=== PATIENT | female | born 1995 | race Asian ===

== ENCOUNTER 2025-03-20 06:00 | Day surgery (SDC) | payer BC ==
[~2025-03-20] VITALS: Ht 152.4 cm; Wt 86.1 kg
[2025-03-20] VITALS (13 sets, daily range): BP systolic 97–148; BP diastolic 66–83
[~2025-03-20 06:00] MED LIST: ALBU90OI INH; AZIT250 PO; HYDACE5 PO; HYDPAM25 PO; NAPR550 PO; Prozac40 MG PO; RXHYDACE PO; RXNAPNA550 PO; Vitamin D1000 UNI1 PO; ZYRTEC10 M2 PO
[2025-03-20] MEDS ORDERED: CeFAZolin Sodium 2,000 MG in NS 100 ML IV SCH ×2 (06:15→13:45)
--- NOTE | 2025-03-20 06:48 | NUR ---
Ambulatory in Day Surgery History, Chart, Medications and Allergies reviewed before start of procedure. Pre-Op teaching done. Pt verbalizes understanding. Patient States Post-Procedure ride home has been arranged.
[2025-03-20] MEDS ORDERED: Midazolam HCl 1MG / ML 2ML Vial ONE (07:06)
[2025-03-20] MEDS ORDERED: FentaNYL Citrate 50 MCG/ML 2 ML Injection ONE (07:06)
[2025-03-20] MEDS ORDERED: Bupivacaine 0.5% W/EPI 1:200000 SDV 30 ML Vial ONE (07:06)
[2025-03-20] MEDS ORDERED: Rocuronium Bromide 10 MG/ML 5ML Injection IV ONE ×3 (07:08→09:25)
[2025-03-20] MEDS ORDERED: HYDROmorphone HCl/Pf 1MG SYR IV PRN ×3 (09:25→10:10)
[2025-03-20] MEDS ORDERED: Ondansetron HCl 2 MG / ML 2ML Vial ONE (09:25)
[2025-03-20] MEDS ORDERED: Dexamethasone Sod Phos 10 MG/ML 1ML VIAL ONE (09:25)
[2025-03-20] MEDS ORDERED: Ketorolac Tromethamine 30mg Vial ONE (09:25)
[2025-03-20] MEDS ORDERED: FentaNYL Citrate 50 MCG/ML 2 ML Injection IV PRN ×2 (09:25→09:30)
[2025-03-20] MEDS ORDERED: Sugammadex Sodium 200 MG/2ML SDV (100 MG/ML) ONE (09:25)
[2025-03-20] MEDS ORDERED: Ondansetron HCl 2 MG / ML 2ML Vial IV PRN ×2 (09:30→10:05)
[2025-03-20] MEDS ORDERED: HYDROmorphone HCl/Pf 1MG SYR ONE (09:38)
[2025-03-20] MEDS ORDERED: Albuterol HFA200 ACT/6.7 GM INH INH PRN (09:55)
[2025-03-20] MEDS ORDERED: Naloxone HCl 0.4MG / ML 1ML Vial IV PRN (10:05)
[2025-03-20] MEDS ORDERED: FLU VACC TS2025-26(6MOS UP)/PF 45 MCG/0.5 ML SYRINGE IM SCH (10:10)
[2025-03-20] MEDS ORDERED: OxyCODONE 5 mg/Acetamin 325 mg TABLET PO PRN (10:10)
[2025-03-20] MEDS ORDERED: Ketorolac Tromethamine 30mg Vial IV PRN (10:20)
--- NOTE | 2025-03-20 11:14 | NUR ---
POST-OP PATIENT ARRIVES TO ROOM 227 @ 1045 GETS UP SBA FROM GURNEY TO BATHROOM, PATIENT IS TRYING TO VOID. DENIES PAIN, SCANT BLOOD ON NAKIA PAD. LAPS SITES WITH GLUE AND SLIGHT DRAINAGE. DENIES NAUSEA. VITALS STARTED PATIENT FAMILY IN ROOM. CALL LIGHT IN REACH.
--- NOTE | 2025-03-20 14:09 | NUR ---
UPDATE DR. MERRITT IN TO ASSESS R LEG, PLAN TO WATCH AND KEEP OVERNIGHT. PATIENT IS AGREEABLE TO THIS. PATIENT STILL REPORTING DECREASED SENSATION TO R LEG, AND UNABLE TO FLEX R FOOT. VITALS STABLE. AND CALL LIGHT IN REACH.
[2025-03-20] MEDS ORDERED: Percocet 5-3251 EACH PO (14:59)
[2025-03-20] MEDS ORDERED: SIME80CH PO (15:00)
[2025-03-20] MEDS ORDERED: PROM25 PO (15:00)
--- NOTE | 2025-03-20 15:49 | NUR ---
DISCHARGE PATIENT IS VOIDING, TOLERATING PO INTAKE, DENIES NAUSEA VOMITTING. TOLERATING PAIN MEDICATONS. ALL INSTRUCTIONS READ AND SIGNED, PRESCRIPTIONS PICKED UP FROM PHARMACY. IV TAKEN OUT INTACT AND FAMILY ASSISTS WITH RIDE HOME.
[2025-03-21] MEDS ORDERED: Cholecalciferol 1000 Unit Tablet (=25MCG) PO SCH (09:00)
== END 2025-03-20 15:53 | disposition home or self-care (01) ==
LOC: ORSCMMR 06:00 → ORD 07:30 → SURS 10:30 → ORSCMMR 15:53
PROVIDERS: Obstetrics & Gynecology
PROC: 0UT6FZZ Resection of Left Fallopian Tube, Via Natural or Artificial Opening With Percutaneous Endoscopic Assistance (ICD-10-PCS; principal; 2025-03-20 07:30)
PROC: 0UT1FZZ Resection of Left Ovary, Via Natural or Artificial Opening With Percutaneous Endoscopic Assistance (ICD-10-PCS; principal; 2025-03-20 07:30)
PROC: 0UT9FZZ Resection of Uterus, Via Natural or Artificial Opening With Percutaneous Endoscopic Assistance (ICD-10-PCS; principal; 2025-03-20 07:30)
DX: N92.1 Excessive and frequent menstruation with irregular cycle (principal); N94.5 Secondary dysmenorrhea; R10.20 Pelvic and perineal pain unspecified side; N72 Inflammatory disease of cervix uteri; D25.2 Subserosal leiomyoma of uterus; N80.351 Endometriosis of the right pelvic sidewall, unspecified depth; D27.1 Benign neoplasm of left ovary; E66.9 Obesity, unspecified; Z68.42 Body mass index [BMI] 45.0-49.9, adult; J45.909 Unspecified asthma, uncomplicated; Z79.899 Other long term (current) drug therapy
CPT/HCPCS: 36415; 86850; 86900; 86901; 88307; A9270; J0690; J1100; J1171; J1885; J2250; J2405; J2704; J3010; J7120